=== PATIENT | female | born 1950 | race American Indian/Alaskan Native ===

== ENCOUNTER 2020-04-29 10:13 | Outpatient (CLI) | payer MEDICARE ==
[~2020-04-29 10:13] MED LIST: LIDOCAINE (1%) 10 MG/1 ML VIAL 20 ML MDV INFILTRATI SCH
[2020-04-29] MEDS ORDERED: LIDOCAINE (1%) 10 MG/1 ML VIAL 20 ML MDV ONE (10:48)
--- NOTE | 2020-04-29 12:16 | Mammography Report ---
Left breast CYST ASPIRATION The procedure was explained to the patient and informed consent obtained. PROCEDURE: Using sonographic guidance, 5 mL of 1% buffered lidocaine, and a 25-gauge needle, one mL of fluid was removed from the left breast at 2:00. A 7 mm simple cyst was identified at 2:00, 2 cm fr om nipple. This corresponded outside mammogram and ultrasound imaging.. Because of its benign appeara nce, the fluid was discarded. No immediate complications occurred. INTERPRETATION: Images made real-time during the procedure demonstrate the needle tip to be in the c enter of the lesion and the lesion to collapse and disappear during aspiration. Impression: Successful aspiration of simple cyst in the left breast at 2:00. DIGITAL DIAGNOSTIC MAMMOGRAM WITH CAD, post aspiration mammogram, 04/29/2020 CLINICAL INFORMATION / INDICATION: Postprocedure mammogram following left breast cyst aspiration TECHNIQUE: Digital left mammographic imaging was performed. This examination was interpreted with the benefit of Computer-aided Detection analysis. COMPARISON: Prior outside mammogram FINDINGS: Breast Density: There are scattered areas of fibroglandular density. No dominant mass, suspicious calcifications or architectural distortion in the left breast. Previously noted masslike density in the upper outer quadrant of the left breast on outside imaging h as resolved following cyst aspiration. IMPRESSION: No mammographic evidence of malignancy. Follow up recommendation: Routine yearly BI-RADS Category 2: Benign. A "normal" or negative report should not discourage follow up or biopsy of a clinically significant f inding. A written summary of these findings will be mailed to the patient. The patient will be entered into a mammography reporting system which will generate a reminder letter for the patient's next appointmen t at the appropriate interval. According to the [employer], yearly mammograms are recommended starting at age 40 and continuing as long as a woman is in good health. Breast MRI is recommended for women with an ana roximately 20-25% or greater lifetime risk of breast cancer, including women with a strong family his tory of breast or ovarian cancer and women who have been treated for Hodgkin's disease. Signer Name: Lexie Livingston MD Signed: 04/29/2020 12:11 PM Workstation Name: [id number]
== END 2020-04-29 10:14 | disposition home or self-care (01) ==
LOC: US 10:13
PROVIDERS: ATTEND Surgery
DX: N60.02 Solitary cyst of left breast (principal); R92.8 Other abnormal and inconclusive findings on diagnostic imaging of breast
CPT/HCPCS: 76942